=== PATIENT | male | born 1985 | race Caucasian/White ===

== ENCOUNTER 2016-07-20 21:57 | Emergency (ER) | payer BC ==
--- NOTE | 2016-07-20 22:23 | ED.ADGEN ---
Adult General HPI HPI Patient is a 30-year-old male presents emergency department complaining of left- sided chest pain. He first had this pain several months ago was seen by Dr. Rahman who told that there was nothing concerning about the pain and nothing to do about it. Then again yesterday the patient went to [facility] emergency department where he was told he was not have any cardiac origin and to try some omeprazole for his discomfort. The patient is been taking omeprazole since yesterday but continues to have the pain. He denies any associated symptoms such as dyspnea, diaphoresis, nausea, vomiting. Review of Systems Review of Systems Constitutional: Denies fever or chills [] Eyes: Denies change in visual acuity, redness, or eye pain [] HENT: Denies nasal congestion or sore throat [] Respiratory: Denies cough or shortness of breath [] Cardiovascular: No additional information not addressed in HPI [] GI: Denies abdominal pain, nausea, vomiting, bloody stools or diarrhea [] : Denies dysuria or hematuria [] Musculoskeletal: Denies back pain or joint pain [] Integument: Denies rash or skin lesions [] Neurologic: Denies headache, focal weakness or sensory changes [] Endocrine: Denies polyuria or polydipsia [] Current Medications Current Medications Current Medications Medications (Trade) Dose Ordered Sig/Nany Start Time Stop Time Status Last Admin Dose Admin Fentanyl Citrate (Fentanyl 2ml Vial) 75 mcg 1X ONCE 07/20/16 22:45 07/20/16 22:46 DC 07/20/16 22:40 75 MCG Hydromorphone HCl (Dilaudid) 1 mg 1X ONCE 07/20/16 23:15 07/20/16 23:16 DC 07/20/16 23:18 1 MG Ketorolac Tromethamine (Toradol) 15 mg 1X ONCE 07/20/16 23:15 07/20/16 23:16 DC 07/20/16 23:18 15 MG Allergies Allergies Allergies Coded Allergies Type Severity Reaction Last Updated Verified cat dander Allergy Intermediate 07/20/16 Yes latex Allergy Intermediate 07/20/16 Yes Physical Exam Physical Exam Constitutional: Well developed, well nourished, no acute distress, non-toxic appearance. [] HENT: Normocephalic, atraumatic, bilateral external ears normal, oropharynx moist, no oral exudates, nose normal. [] Eyes: PERRLA, EOMI, conjunctiva normal, no discharge. [] Neck: Normal range of motion, no tenderness, supple, no stridor. [] Cardiovascular:Heart rate regular rhythm, no murmur [] Lungs & Thorax: Bilateral breath sounds clear to auscultation [] Abdomen: Bowel sounds normal, soft, no tenderness, no masses, no pulsatile masses. [] Skin: Warm, dry, no erythema, no rash. [] Back: No tenderness, no CVA tenderness. [] Extremities: No tenderness, no cyanosis, no clubbing, ROM intact, no edema. [] Neurologic: Alert and oriented X 3, normal motor function, normal sensory function, no focal deficits noted. [] Psychologic: Affect normal, judgement normal, mood normal. [] Current Patient Data Vital Signs Vital Signs Date Time Temp Pulse Resp B/P Pulse Ox O2 Delivery O2 Flow Rate FiO2 07/20/16 23:18 20 95 Room Air Lab Results Laboratory Tests Test 07/20/16 22:44 POC Hemoglobin 15.0gm/dL POC Hematocrit 44% POC Sodium 141mmol/L (135-145) POC Potassium 3.9mmol/L (3.5-5.0) POC Chloride 101mmol/L (98-110) POC Total CO2 28mmol/L (23-32) Anion Gap 17mmol/L (6-14) H POC Blood Urea Nitrogen 5mg/dL (8-26) L POC Creatinine 0.9mg/dL (0.5-1.4) Glucose Level 124mg/dL (60-99) H POC Ionized Calcium (Paulina) 1.17mmol/L (1.13-1.32) EKG EKG EKG interpreted by me, normal sinus rhythm, 66 bpm, no ST segment elevation, normal axis. [] Radiology/Procedures Radiology/Procedures [] Course & Med Decision Making Course & Med Decision Making Pertinent Labs and Imaging studies reviewed. (See chart for details) Reassuring work up. Discharged with supportive care instructions, full up directions, and return precautions. Rx for [place] [] Final Impression Final Impression chest pain[] Problems: Dragon Disclaimer Dragon Disclaimer This electronic medical record was generated, in whole or in part, using a voice recognition dictation system. DALE POLLOCK MD Jul 20, 2016 22:23
[2016-07-20] MEDS ORDERED: FENTANYL PF 100 MCG/2 ML VIAL. IV ONE (22:45)
[2016-07-20 22:54] LABS: POTASSIUM ISTAT 3.9 mmol/L (3.5-5.0)
--- NOTE | 2016-07-20 23:06 | EKG ---
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
[2016-07-20] MEDS ORDERED: HYDROMORPHONE PF 1 MG/ML DISP.SYRIN. IV ONE (23:15)
[2016-07-20] MEDS ORDERED: KETOROLAC 15 MG/ML VIAL. IV ONE (23:15)
[2016-07-20] MEDS ORDERED: HYDR-971 PO (23:23)
[2016-07-20 23:35] VITALS: BP 144/88
--- NOTE | 2016-07-21 07:25 | RAD ---
Portable chest, 07/20/2016: History: Chest pain The heart size and pulmonary vascularity are normal. No pulmonary infiltrates are seen. There is no evidence of pleural fluid. IMPRESSION: No acute cardiopulmonary abnormality is detected.
== END 2016-07-20 23:35 | disposition home or self-care (01) ==
LOC: ER 22:40
DX: R07.89 Other chest pain (principal); Z91.040 Latex allergy status; Z91.048 Other nonmedicinal substance allergy status
CPT/HCPCS: 71010; 80047; 93005; 96374; 96375; 99284; J1170; J1885; J3010

== ENCOUNTER 2017-03-18 22:06 | Emergency (ER) | payer BC ==
[~2017-03-18] VITALS: Ht 185.4 cm; Wt 142.9 kg
[~2017-03-18 22:06] MED LIST: HYDR-971 PO
[2017-03-18] MEDS ORDERED: KETOROLAC 30 MG/ML VIAL. IV ONE (22:45)
[2017-03-18] MEDS ORDERED: LIDO:MAALOX 1:1 20 ML SINGLE DOSE PO ONE (22:45)
[2017-03-18 22:53] LABS: BASO # 0.1 x10^3/uL (0.0-0.2); BASO % 1 % (0-3); EOS # 0.1 x10^3/uL (0.0-0.7); EOS % 1 % (0-3); HEMATOCRIT 44.7 % (39.0-53.0); HEMOGLOBIN 15.9 g/dL (13.0-17.5); LYMPH # 3.7 x10^3/uL (1.0-4.8); LYMPH % 40 % (24-48); MEAN CORPUSCULAR HEMOGLOBIN 29 pg (25-35); MEAN CORPUSCULAR HGB CONC 36 g/dL (31-37); MEAN CORPUSCULAR VOLUME 82 fL (79-100); MONO # 0.7 x10^3/uL (0.0-1.1); MONO % 8 % (0-9); NEUT # 4.7 x10^3uL (1.8-7.7); NEUT % 50 % (31-73); PLATELET COUNT 292 x10^3/uL (140-400); RED BLOOD COUNT 5.44 x10^6/uL (4.30-5.70); RED CELL DISTRIBUTION WIDTH 12.8 % (11.5-14.5); WHITE BLOOD COUNT 9.3 x10^3/uL (4.0-11.0)
[2017-03-18 23:08] LABS: ALBUMIN 3.9 g/dL (3.4-5.0); CREATININE 0.9 mg/dL (0.7-1.3); GFR 97.8; TOTAL BILIRUBIN 0.4 mg/dL (0.2-1.0); TOTAL PROTEIN 7.9 g/dL (6.4-8.2)
--- NOTE | 2017-03-18 23:29 | PHYS DOC ---
Past History Past Medical History: GERD Past Surgical History: Tonsillectomy Alcohol Use: None Drug Use: None Adult General Chief Complaint Chief Complaint: CHEST PAIN HPI HPI Patient is a 31-year-old gentleman who presents here today complaining of midsternal sharp pain that started earlier this evening. Patient reports she's had similar pain in the past that was diagnosed as GERD and he has been on both Prilosec and Pepcid to assist him with the pain. Patient reports that when he started on his medications approximately 3 months ago the symptoms significant only improved. Patient reports that earlier today he started having the discomfort again prior to coming to the ER he went to go get some food prior to being evaluated for his pain. Patient denies any other symptomatology. Patient has any fevers shakes chills nausea vomiting diarrhea cough cold rhinorrhea. Patient denies any exacerbating or relieving factors. Patient denies any change with exertion, rest, cough, inspiration. Patient has any diaphoresis nausea or pain radiating to his arms or jaw. Constitutional: Denies fever or chills Eyes: Denies change in visual acuity, redness, or eye pain HENT: Denies nasal congestion or sore throat Respiratory: Denies cough or shortness of breath Cardiovascular: No additional information not addressed in HPI All other systems were reviewed and found to be within normal limits, except as documented in this note. Constitutional: Well developed, well nourished, no acute distress, non-toxic appearance. HENT: Normocephalic, atraumatic, bilateral external ears normal, oropharynx moist, no oral exudates, nose normal. Eyes: PERRLA, EOMI, conjunctiva normal, no discharge. Neck: Normal range of motion, no tenderness, supple, no stridor. Cardiovascular:Heart rate regular rhythm, Abdomen: Bowel sounds normal, soft, no tenderness, no masses, no pulsatile masses. Skin: Warm, dry, no erythema, no rash. Back: No tenderness, no CVA tenderness. Extremities: No tenderness, no cyanosis, no clubbing, ROM intact, no edema. Neurologic: Alert and oriented X 3, normal motor function, normal sensory function, no focal deficits noted. Psychologic: Affect normal, judgement normal, mood normal. Patient's ER exam was unremarkable. Patient's lungs were clear. Heart was regular rate and rhythm. Chest x-ray was normal with no infiltrates or effusions. As interpreted by ER physician. EKG revealed normal sinus rhythm at a heart rate of [address]-T wave abnormalities as interpreted by ER physician. Assessment and plan Chest pain. I discussed with the patient that this might be secondary to GERD, chest wall pain, mechanical strain, patient's ER workup is been unremarkable. Patient has a normal CBC, CMP, EKG, chest x-ray. D-dimer is negative which help rule out dissection/PE. Patient was given Protonix IV as well as a GI cocktail the ED and Toradol without any significant changes discomfort. Patient was reassured that his pain is not of a life threatening nature and has been encouraged to follow-up with primary care doctor in 1-2 days for reevaluation. Current Medications Current Medications Current Medications Medications (Trade) Dose Ordered Sig/Nany Start Time Stop Time Status Last Admin Dose Admin Ketorolac Tromethamine (Toradol) 30 mg 1X ONCE 03/18/17 22:45 03/18/17 22:46 DC 03/18/17 22:44 30 MG Multi-Ingredient Mouthwash/Gargle (Gi Cocktail) 20 ml 1X ONCE 03/18/17 22:45 03/18/17 22:46 DC 03/18/17 22:44 20 ML Pantoprazole Sodium (Protonix Vial) 40 mg 1X ONCE 03/18/17 23:15 03/18/17 23:16 UNV Allergies Allergies Allergies Coded Allergies Type Severity Reaction Last Updated Verified cat dander Allergy Intermediate 03/18/17 Yes latex Allergy Intermediate 03/18/17 Yes Current Patient Data Lab Results Laboratory Tests Test 03/18/17 22:35 White Blood Count 9.3 x10^3/uL (4.0-11.0) Red Blood Count 5.44 x10^6/uL (4.30-5.70) Hemoglobin 15.9 g/dL (13.0-17.5) Hematocrit 44.7 % (39.0-53.0) Mean Corpuscular Volume 82 fL (79-100) Mean Corpuscular Hemoglobin 29 pg (25-35) Mean Corpuscular Hemoglobin Concent 36 g/dL (31-37) Red Cell Distribution Width 12.8 % (11.5-14.5) Platelet Count 292 x10^3/uL (140-400) Neutrophils (%) (Auto) 50 % (31-73) Lymphocytes (%) (Auto) 40 % (24-48) Monocytes (%) (Auto) 8 % (0-9) Eosinophils (%) (Auto) 1 % (0-3) Basophils (%) (Auto) 1 % (0-3) Neutrophils # (Auto) 4.7 x10^3uL (1.8-7.7) Lymphocytes # (Auto) 3.7 x10^3/uL (1.0-4.8) Monocytes # (Auto) 0.7 x10^3/uL (0.0-1.1) Eosinophils # (Auto) 0.1 x10^3/uL (0.0-0.7) Basophils # (Auto) 0.1 x10^3/uL (0.0-0.2) Sodium Level 134 mmol/L (136-145) L Potassium Level 4.0 mmol/L (3.5-5.1) Chloride Level 99 mmol/L (98-107) Carbon Dioxide Level 27 mmol/L (21-32) Anion Gap 8 (6-14) Blood Urea Nitrogen 14 mg/dL (8-26) Creatinine 0.9 mg/dL (0.7-1.3) Estimated GFR (Cockcroft-Gault) 97.8 BUN/Creatinine Ratio 16 (6-20) Glucose Level 122 mg/dL (70-99) H Calcium Level 9.0 mg/dL (8.5-10.1) Total Bilirubin 0.4 mg/dL (0.2-1.0) Aspartate Amino Transferase (AST) 25 U/L (15-37) Alanine Aminotransferase (ALT) 27 U/L (16-63) Alkaline Phosphatase 66 U/L (46-116) Troponin I Quantitative < 0.017 ng/mL (0-0.055) Total Protein 7.9 g/dL (6.4-8.2) Albumin 3.9 g/dL (3.4-5.0) Albumin/Globulin Ratio 1.0 (1.0-1.7) EKG EKG [] Radiology/Procedures Radiology/Procedures [] Course & Med Decision Making Course & Med Decision Making Pertinent Labs and Imaging studies reviewed. (See chart for details) [] Dragon Disclaimer Dragon Disclaimer This electronic medical record was generated, in whole or in part, using a voice recognition dictation system. Departure Departure: Impression: Primary Impression: Chest wall pain Additional Impressions: Nonspecific chest pain GERD (gastroesophageal reflux disease) Disposition: 01 HOME, SELF-CARE Condition: IMPROVED Referrals: GOPI JAMES MD (PCP) Patient Instructions: Chest Pain (Nonspecific) Problem Qualifiers TARIQ GONZALEZ MD Mar 18, 2017 23:29
[2017-03-18] MEDS ORDERED: PANTOPRAZOLE IV PUSH 40 MG VIAL. IVP ONE (23:30)
[2017-03-18 23:55] VITALS: BP 140/78
--- NOTE | 2017-03-19 05:49 | EKG ---
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
--- NOTE | 2017-03-19 08:25 | RAD ---
PA AND LATERAL CHEST RADIOGRAPH Clinical Indication: cp. Since early evening Comparison: AP chest 07/20/2016. Findings: The cardiomediastinal silhouette is normal. Pulmonary vasculature is normal. The lungs are clear. No pleural effusion or pneumothorax is seen. There is no acute bone abnormality. IMPRESSION: No acute cardiopulmonary process.
== END 2017-03-19 00:02 | disposition home or self-care (01) ==
LOC: ER 22:06
DX: R07.89 Other chest pain (principal); K21.9 Gastro-esophageal reflux disease without esophagitis; Z91.040 Latex allergy status; Z91.048 Other nonmedicinal substance allergy status
CPT/HCPCS: 36415; 71020; 80053; 84484; 85025; 85379; 93005; 96374; 96375; 99285; C9113; J1885

== ENCOUNTER 2019-09-17 09:07 | Emergency (ER) | payer SELFPAY ==
[~2019-09-17] VITALS: Ht 185.4 cm; Wt 120.4 kg
[~2019-09-17 09:07] MED LIST changes: +HYDR-3165 PO; -HYDR-971 PO
[2019-09-17] MEDS: TETRACAINE 0.5% OPHTH SOLUTION 4ML BOTTLE. OD ONE (09:39)
[2019-09-17] MEDS: FLUORESCEIN 1MG EYE STRIP. OD ONE (09:43)
[2019-09-17] MEDS: DIPH,PERTUSS(ACELL),TET VAC/PF 0.5 ML SYRINGE. VAX IM ONE (10:22)
[2019-09-17 10:24] VITALS: BP 148/93
[2019-09-17] MEDS ORDERED: GENT5DRO3 OD (10:30)
--- NOTE | 2019-09-17 10:30 | PHYS DOC ---
Past History Past Medical History: GERD, Other Past Surgical History: Tonsillectomy, Other Alcohol Use: Rarely Drug Use: None General Adult EDM: Chief Complaint: EYE PROBLEMS HPI: HPI: Patient is a 34 year old male who presented to the ER today for evaluation of right eye pain. Patient felt like there something in his right eye. He was cutting a metal pole with saw last night, This morning, he woke up, having pain in his right eye, felt like there is something in it. He tried to flush with water but did not get better so he came here for evaluation. His last tetanus shot was about 9 years ago. Review of Systems: Review of Systems: Constitutional: Denies fever or chills Eyes: Denies change in visual acuity. positive for right eye irrigation. HENT: Denies nasal congestion or sore throat Respiratory: Denies cough or shortness of breath Cardiovascular: Denies chest pain or edema GI: Denies abdominal pain, nausea, vomiting, bloody stools or diarrhea : Denies dysuria Musculoskeletal: Denies back pain or joint pain Integument: Denies rash Neurologic: Denies headache, focal weakness or sensory changes Endocrine: Denies polyuria or polydipsia Lymphatic: Denies swollen glands Psychiatric: Denies depression or anxiety Heart Score: Risk Factors: Risk Factors: DM, Current or recent (<one month) smoker, HTN, HLP, family history of CAD, obesity. Risk Scores: Score 0 - 3: 2.5% MACE over next 6 weeks - Discharge Home Score 4 - 6: 20.3% MACE over next 6 weeks - Admit for Clinical Observation Score 7 - 10: 72.7% MACE over next 6 weeks - Early Invasive Strategies Current Medications: Current Meds: Current Medications Medications (Trade) Dose Ordered Sig/Nany Start Time Stop Time Status Last Admin Dose Admin Diphtheria/ Pertussis/Tetanus Vacc (ADACEL TDap SYRINGE) 0.5 ml ONCE ONCE 09/17/19 10:15 09/17/19 10:16 DC 09/17/19 10:22 0.5 ML Fluorescein Sodium (Ful-Shala 1mg) 1 strip 1X ONCE 09/17/19 09:30 09/17/19 09:33 DC 09/17/19 09:43 1 STRIP Tetracaine HCl (Tetracaine) 2 drop 1X ONCE 09/17/19 09:30 09/17/19 09:33 DC 09/17/19 09:39 2 DROP Allergies: Allergies: Allergies Coded Allergies Type Severity Reaction Last Updated Verified cat dander Allergy Intermediate 03/18/17 Yes latex Allergy Intermediate 03/18/17 Yes Physical Exam: PE: Constitutional: Well developed, well nourished, no acute distress, non-toxic appearance. [] HENT: Normocephalic, atraumatic, bilateral external ears normal, oropharynx moist, no oral exudates, nose normal. [] Eyes: PERRLA, EOMI, conjunctiva normal, there is foreign body in right cornea at about 4 oclock position, no hyphema, no discharge. Neck: Normal range of motion, no tenderness, supple, no stridor. [] Cardiovascular:Heart rate regular rhythm, no murmur [] Lungs & Thorax: Bilateral breath sounds clear to auscultation [] Abdomen: Bowel sounds normal, soft, no tenderness, no masses, no pulsatile masses. [] Skin: Warm, dry, no erythema, no rash. [] Back: No tenderness, no CVA tenderness. [] Extremities: No tenderness, no cyanosis, no clubbing, ROM intact, no edema. [] Neurologic: Alert and oriented X 3, normal motor function, normal sensory function, no focal deficits noted. [] Psychologic: Affect normal, judgement normal, mood normal. [] Current Patient Data: Vital Signs: Vital Signs Date Time Temp Pulse Resp B/P (MAP) Pulse Ox O2 Delivery O2 Flow Rate FiO2 09/17/19 10:24 88 18 148/93 (111) 100 Room Air EKG: EKG: [] Radiology/Procedures: Radiology/Procedures: Wood lamp exam was done, found a small piece of metal embedded in cornea at abour 4 OCLOCK POSITION. It was removed with the tip of an 18 gauge needle, there was residual ring rust left. There is cornea abrasion evidence by dye uptake. NO hyphema, no evidence of open globe injury. Course & Med Decision Making: Course & Med Decision Making Pertinent Labs and Imaging studies reviewed. (See chart for details) [] Dragon Disclaimer: Dragon Disclaimer: This electronic medical record was generated, in whole or in part, using a voice recognition dictation system. Departure Departure: Impression: Primary Impression: Corneal foreign body with residual material Additional Impression: Corneal abrasion, right Disposition: 01 HOME/RESIDENCE PRIOR TO ADM Condition: STABLE Referrals: PCP,LOCO (PCP) PLEASE FOLLOW UP WITH AN OPTHALMOLOGIST THIS WEEK FOR REEVALUATION. Patient Instructions: Eye - Corneal Abrasion, Eye - Corneal Foreign Body Scripts Hydrocodone Bit/Acetaminophen (NORCO 5-325 TABLET) 1 Each Tablet 1 TAB PO PRN Q6HRS PRN for PAIN, #12 TAB 0 Refills Prov: CHRISSY AMAYA DO 09/17/19 Gentamicin Sulfate (GENTAK) 5 Ml Drops 2 DROP OD QID for CORNEA ABRASION for 5 Days, #5 ML 0 Refills Prov: CHRISSY AMAYA DO 09/17/19 CHRISSY AMAYA DO September 17, 2019 10:30
[2019-09-17] MEDS ORDERED: HYDR-3165 PO (10:40)
[2019-09-17] MEDS ORDERED: HYDROcodone/APAP 5/325MG 1 TAB TABLET PO ONE (10:45)
== END 2019-09-17 10:45 | disposition home or self-care (01) ==
LOC: ER 09:07
DX: T15.01XA Foreign body in cornea, right eye, initial encounter (principal); K21.9 Gastro-esophageal reflux disease without esophagitis; Z91.040 Latex allergy status; Z88.8 Allergy status to other drugs, medicaments and biological substances; X58.XXXA Exposure to other specified factors, initial encounter; Y93.89 Activity, other specified; Y92.89 Other specified places as the place of occurrence of the external cause; Y99.8 Other external cause status
CPT/HCPCS: 65220; 90471; 90715; 99284